=== PATIENT | male | born 1955 | race Caucasian/White ===

== ENCOUNTER 2018-04-28 15:44 | Emergency (ER) | payer SELFPAY ==
--- NOTE | 2018-04-28 15:53 | ER Report ---
History and Physical Time Seen By MD: 15:52 HPI/ROS CHIEF COMPLAINT: Near Syncope HISTORY OF PRESENT ILLNESS: 62-year-old male patient presents to emergency room with complaint of near syncope. Patient states that he is a prisoner who is transferring from [place] to [place]. He states that he just finished a bag of chips and felt extremely lightheaded. He states that he felt like he was going to vomit, that he was going to lose control of his bowels. Patient states that he's been told that he is prediabetic in the past. They've encouraged him to check his blood sugars monthly. He states that he is feeling better at this point in time. He is concerned that it may be related to his diabetes. He denies having any fevers, chills, nausea, vomiting or diarrhea. He denies having any recent illnesses. Patient states he takes propranolol and omeprazole as his only medications. REVIEW OF SYSTEMS: Respiratory: No cough, no dyspnea. Cardiovascular: No chest pain, no palpitations. Gastrointestinal: No vomiting, no abdominal pain. Musculoskeletal: No back pain. Allergies: Coded Allergies: chidi (Verified Allergy, Severe, ANAPHYLAXIS, 04/28/18) Home Meds Reported Medications Propranolol Hcl (PROPRANOLOL HCL) 40 Mg Tablet, 40 MG PO BID 04/28/18 Omeprazole (OMEPRAZOLE) 20 Mg Capsule.dr, 1 CAP PO QDAY, CAP 04/28/18 Past Medical/Surgical History Patient has a past medical history of [place], hypertension, Curtis's esophagitis. Patient has surgical history of cyst removed from back. Reviewed Nurses Notes: Yes Constitutional Vital Sign - Last 24 Hours 04/28/18 04/28/18 04/28/18 04/28/18 15:48 15:51 16:00 16:14 Temp 97.9 Pulse 71 87 Resp 13 14 B/P (MAP) 132/76 (94) 132/76 124/88 (100) Pulse Ox 90 93 O2 Delivery Room Air 04/28/18 04/28/18 04/28/18 04/28/18 16:25 16:30 16:35 16:45 Pulse 84 Resp 11 B/P (MAP) 114/84 (94) 110/79 (89) 122/87 (99) Pulse Ox 90 04/28/18 04/28/18 04/28/18 04/28/18 17:00 17:05 17:10 17:30 Pulse 88 90 Resp 44 6 B/P (MAP) 111/94 (100) 129/77 (94) Pulse Ox 90 92 04/28/18 04/28/18 17:40 17:45 Pulse 91 Resp 11 B/P (MAP) 105/86 (92) Pulse Ox 91 Physical Exam General Appearance: The patient is alert, has no immediate need for airway protection and no current signs of toxicity. Respiratory: Chest is non tender, lungs are clear to auscultation. Cardiac: regular rate and rhythm Gastrointestinal: Abdomen is soft and non tender, no masses, bowel sounds normal. Musculoskeletal: Neck: Neck is supple and non tender. Extremities have full range of motion and are non tender. Skin: No rashes or lesions. DIFFERENTIAL DIAGNOSIS: After history and physical exam differential diagnosis was considered for syncope including but not limited to vasovagal syncope, arrhythmia, dehydration, and blood loss. Medical Decision Making Data Points Result Diagram: 04/28/18 1628 04/28/18 1628 Laboratory Hematology Test 04/28/18 16:28 04/28/18 17:25 Red Blood Count 5.50 M/uL (4.00-5.60) Mean Corpuscular Volume 90.8 fL (80.0-96.0) Mean Corpuscular Hemoglobin 30.7 pg (26.0-33.0) Mean Corpuscular Hemoglobin Concent 33.8 g/dL (32.0-36.0) Red Cell Distribution Width 13.7 % (11.5-14.5) Mean Platelet Volume 8.7 fL (7.2-11.1) Neutrophils (%) (Auto) 78.5 % (39.4-72.5) Lymphocytes (%) (Auto) 14.7 % (17.6-49.6) Monocytes (%) (Auto) 5.9 % (4.1-12.4) Eosinophils (%) (Auto) 0.5 % (0.4-6.7) Basophils (%) (Auto) 0.4 % (0.3-1.4) Nucleated RBC Relative Count (auto) 0.0 /100WBC Neutrophils # (Auto) 9.0 K/uL (2.0-7.4) Lymphocytes # (Auto) 1.7 K/uL (1.3-3.6) Monocytes # (Auto) 0.7 K/uL (0.3-1.0) Eosinophils # (Auto) 0.1 K/uL (0.0-0.5) Basophils # (Auto) 0.0 K/uL (0.0-0.1) Nucleated RBC Absolute Count (auto) 0.00 K/uL Sodium Level 143 mmol/L (137-145) Potassium Level 3.7 mmol/L (3.5-5.0) Chloride Level 104 mmol/L (98-107) Carbon Dioxide Level 26 mmol/L (22-30) Blood Urea Nitrogen 17 mg/dl (9-21) Creatinine 1.10 mg/dl (0.66-1.25) Glomerular Filtration Rate Calc > 60.0 Random Glucose 146 mg/dl (75-110) Calcium Level 9.8 mg/dl (8.4-10.2) Total Bilirubin 1.0 mg/dl (0.2-1.3) Aspartate Amino Transf (AST/SGOT) 35 U/L (0-35) Alanine Aminotransferase (ALT/SGPT) 66 U/L (0-56) Alkaline Phosphatase 121 U/L (0-126) Troponin I < 0.012 ng/ml Total Protein 8.6 g/dl (6.3-8.2) Albumin 5.0 g/dl (3.5-5.0) Urine Color [place] Urine Clarity Slightly-cloudy Urine pH 5.0 pH (4.8-9.5) Urine Specific [place] 1.025 Urine Protein 30 mg/dL (NEGATIVE) Urine Glucose (UA) Negative mg/dL (NEGATIVE) Urine Ketones Negative mg/dL (NEGATIVE) Urine Blood Small (NEGATIVE) Urine Nitrite Negative (NEGATIVE) Urine Bilirubin Negative (NEGATIVE) Urine Urobilinogen 4.0 mg/dL (0.2-1.9) Urine Leukocyte Esterase Negative (NEGATIVE) Urine RBC 7 /HPF (0-2/HPF) Urine WBC 5 /HPF (0-5/HPF) Urine Squamous Epithelial Cells None /LPF (</=FEW) Urine Bacteria Negative /HPF (NONE-FEW) Urine Hyaline Casts Many /LPF (NONE-FEW) Urine Mucus Few /HPF (NONE-FEW) Chemistry Test 04/28/18 16:28 04/28/18 17:25 White Blood Count 11.4 k/uL (4.5-11.0) Red Blood Count 5.50 M/uL (4.00-5.60) Hemoglobin 16.9 g/dL (14.0-18.0) Hematocrit 50.0 % (42.0-52.0) Mean Corpuscular Volume 90.8 fL (80.0-96.0) Mean Corpuscular Hemoglobin 30.7 pg (26.0-33.0) Mean Corpuscular Hemoglobin Concent 33.8 g/dL (32.0-36.0) Red Cell Distribution Width 13.7 % (11.5-14.5) Platelet Count 280 K/uL (150-450) Mean Platelet Volume 8.7 fL (7.2-11.1) Neutrophils (%) (Auto) 78.5 % (39.4-72.5) Lymphocytes (%) (Auto) 14.7 % (17.6-49.6) Monocytes (%) (Auto) 5.9 % (4.1-12.4) Eosinophils (%) (Auto) 0.5 % (0.4-6.7) Basophils (%) (Auto) 0.4 % (0.3-1.4) Nucleated RBC Relative Count (auto) 0.0 /100WBC Neutrophils # (Auto) 9.0 K/uL (2.0-7.4) Lymphocytes # (Auto) 1.7 K/uL (1.3-3.6) Monocytes # (Auto) 0.7 K/uL (0.3-1.0) Eosinophils # (Auto) 0.1 K/uL (0.0-0.5) Basophils # (Auto) 0.0 K/uL (0.0-0.1) Nucleated RBC Absolute Count (auto) 0.00 K/uL Glomerular Filtration Rate Calc > 60.0 Calcium Level 9.8 mg/dl (8.4-10.2) Total Bilirubin 1.0 mg/dl (0.2-1.3) Aspartate Amino Transf (AST/SGOT) 35 U/L (0-35) Alanine Aminotransferase (ALT/SGPT) 66 U/L (0-56) Alkaline Phosphatase 121 U/L (0-126) Troponin I < 0.012 ng/ml Total Protein 8.6 g/dl (6.3-8.2) Albumin 5.0 g/dl (3.5-5.0) Urine Color [place] Urine Clarity Slightly-cloudy Urine pH 5.0 pH (4.8-9.5) Urine Specific [place] 1.025 Urine Protein 30 mg/dL (NEGATIVE) Urine Glucose (UA) Negative mg/dL (NEGATIVE) Urine Ketones Negative mg/dL (NEGATIVE) Urine Blood Small (NEGATIVE) Urine Nitrite Negative (NEGATIVE) Urine Bilirubin Negative (NEGATIVE) Urine Urobilinogen 4.0 mg/dL (0.2-1.9) Urine Leukocyte Esterase Negative (NEGATIVE) Urine RBC 7 /HPF (0-2/HPF) Urine WBC 5 /HPF (0-5/HPF) Urine Squamous Epithelial Cells None /LPF (</=FEW) Urine Bacteria Negative /HPF (NONE-FEW) Urine Hyaline Casts Many /LPF (NONE-FEW) Urine Mucus Few /HPF (NONE-FEW) Urinalysis Test 04/28/18 17:25 Urine Color [place] Urine Clarity Slightly-cloudy Urine pH 5.0 pH (4.8-9.5) Urine Specific [place] 1.025 Urine Protein 30 mg/dL (NEGATIVE) Urine Glucose (UA) Negative mg/dL (NEGATIVE) Urine Ketones Negative mg/dL (NEGATIVE) Urine Blood Small (NEGATIVE) Urine Nitrite Negative (NEGATIVE) Urine Bilirubin Negative (NEGATIVE) Urine Urobilinogen 4.0 mg/dL (0.2-1.9) Urine Leukocyte Esterase Negative (NEGATIVE) Urine RBC 7 /HPF (0-2/HPF) Urine WBC 5 /HPF (0-5/HPF) Urine Squamous Epithelial Cells None /LPF (</=FEW) Urine Bacteria Negative /HPF (NONE-FEW) Urine Hyaline Casts Many /LPF (NONE-FEW) Urine Mucus Few /HPF (NONE-FEW) EKG/Imaging EKG Interpretation 12 lead EKG: Rhythm: normal sinus rhythm with a ventricular rate of 80 bpm [place]: normal QRS: normal ST segments: Mild ST depression in V2, V3. Imaging Technique: CHEST PA AND LAT HISTORY: Lightheaded COMPARISON: None available Findings: The lungs are clear. No pleural effusion or pneumothorax. The cardiomediastinal silhouette is unremarkable. Impression: 1. No acute cardiopulmonary process. Report Dictated By: Aubrey Milligan DO at 04/28/2018 4:31 PM Report E-Signed By: Aubrey Milligan DO at 04/28/2018 4:33 PM ED Course/Re-evaluation ED Course Patient was admitted to an exam room, history and physical were obtained. Differential diagnoses were considered. On examination lungs are clear, heart regular, abdomen is soft and nontender. A CBC, CMP, troponin, EKG, chest x-ray were done. IV was started patient received a liter of normal saline. On reevaluation patient did feel better. Labs were unremarkable. Patient did have a urinalysis with 5 white blood cells per high-power field. As result a culture was done. I discussed the findings with the patient. Patient will be discharged. I believe the likelihood is that the patient was very dehydrated that was causing him to not feel well. I believe that he has been drinking enough fluids as he has been traveling. Patient and the cars were with him verbalized understanding and agreement with plan. Decision to Disposition Date: Apr 28, 2018 Decision to Disposition Time: 17:08 Depart Departure Latest Vital Signs Vital Signs Date Time Temp Pulse Resp B/P (MAP) Pulse Ox O2 Delivery O2 Flow Rate FiO2 04/28/18 17:45 105/86 (92) 04/28/18 17:40 91 11 91 04/28/18 15:51 97.9 Room Air Impression: Primary Impression: Near syncope Additional Impression: Dehydration Condition: Improved Disposition: HOME OR SELF-CARE Patient Instructions: Dehydration (ED) Additional Instructions: Increase fluid intake. Get plenty of rest. Make sure that you work on losing weight, exercise. Your blood sugar is slightly high, follow up with the medical staff in [facility]. Go to ER if condition worsens. Problem Qualifiers XOCHILT ZAYAS Apr 28, 2018 15:52
[2018-04-28] MEDS ORDERED: PROP40TA45 PO (15:55)
[2018-04-28] MEDS ORDERED: OMEP-125 PO (15:55)
[2018-04-28] MEDS ORDERED: NS(*) 0.9% 1000 ML BAG 1,000 ML IV ONE (16:03)
--- NOTE | 2018-04-28 16:26 | EKG ---
FACILITY: [facility] [place] PATIENT NAME: JAIRON HANNA : [id number] MR: [id number] V: [id number] EXAM DATE: ORDERING PHYSICIAN: XOCHILT ZAYAS TECHNOLOGIST: Test Reason : Blood Pressure : / mmHG Vent. Rate : 080 BPM Atrial Rate : 080 BPM P-R Int : 200 ms QRS Dur : 092 ms QT Int : 364 ms P-R-T Axes : 020 018 011 degrees QTc Int : 419 ms Sinus rhythm Borderline left axis Decreased R wave progression anteriorly Artifact in multiple leads - repeat if needed Abnormal ECG No previous ECGs available Confirmed by TATY PHILIPPE ([id number] on 04/28/2018 8:01:31 PM Referred By: Confirmed By:TATY PHILIPPE
[2018-04-28 16:33] LABS: PLATELET COUNT, AUTOMATED 280 K/uL (150-450)
--- NOTE | 2018-04-28 16:38 | RADIOLOGY IMAGING REPORT ---
FACILITY: [facility] [place] PATIENT NAME: Stuart Slade : 1955 MR: [id number] V: [id number] EXAM DATE: ORDERING PHYSICIAN: XOCHILT ZAYAS TECHNOLOGIST: Location: [facility] Patient: Stuart Slade : 1955 Visit/Account:[id number] Date of Sevice: 04/28/2018 Technique: CHEST PA AND LAT HISTORY: Lightheaded COMPARISON: None available Findings: The lungs are clear. No pleural effusion or pneumothorax. The cardiomediastinal silhouett e is unremarkable. Impression: 1. No acute cardiopulmonary process. Report Dictated By: Aubrey Milligan DO at 04/28/2018 4:31 PM Report E-Signed By: Aubrey Milligan DO at 04/28/2018 4:33 PM [id number]
[2018-04-28 17:45] VITALS: BP 105/86
== END 2018-04-28 18:00 | disposition home or self-care (01) ==
LOC: ER 15:49
DX: R55 Syncope and collapse (principal); E86.0 Dehydration
CPT/HCPCS: 71046; 81001; 84484; 85025; 87088; 93005; 96360; 96361; 99284; J7030; 82040; 82247; 82310; 82374; 82435; 82565; 82947; 84075; 84132; 84155; 84295; 84450; 84460; 84520